=== PATIENT | female | born 1930 | race Hispanic/Latino ===

== ENCOUNTER → 2020-05-13 | Day surgery (SDC) | payer MEDICARE, OTHER ==
[2020-05-08 15:24] LABS: BASOPHILS # (AUTO) 0.1 (0.0-0.1); BASOPHILS % 0.7 % (0.0-1.0); EOSINOPHILS # (AUTO) 0.5 (0.0-0.4); EOSINOPHILS % 7.2 % (0.0-6.0); HEMATOCRIT 34.8 % (34.2-44.1); HEMOGLOBIN 11.3 g/dL (12.0-16.0); LYMPHOCYTES # (AUTO) 3.3 (1.0-3.2); LYMPHOCYTES % 43.8 % (18.0-39.1); MEAN CORPUSCULAR HEMOGLOBIN 30.4 pg (28-32); MEAN CORPUSCULAR HGB CONC 32.5 g/dL (31-35); MEAN CORPUSCULAR VOLUME 93.5 fL (81-99); MONOCYTES # (AUTO) 0.8 (0.2-0.8); NEUTROPHILS # (AUTO) 2.8 (2.1-6.9); NEUTROPHILS % 36.9 % (38.7-80.0); PLATELET COUNT 245 x10e3/uL (140-360); RED BLOOD COUNT 3.72 x10e6/uL (3.6-5.1)
[~2020-05-13] MED LIST: EFFEXOR XR 3737.5 MG PO; FAMOTIDINE20 MG PO; LOSARTAN POTAS100 MG PO; MECLIZINE HCL12.5 MG PO; PANTOPRAZOLE SO40 MG PO; PLAVIX75 MG PO; PRAVACHOL40 MG PO; PROPOFOL IV EMULSION 10 MG/ML 20 ML VIAL ONE; TUSSIN AC PO; XANAX1 MG PO; ZETIA10 MG PO
[2020-05-13 12:15] VITALS: BP 164/69
== END | disposition home or self-care (01) ==
LOC: OR 09:58
PROVIDERS: ATTEND Internal Medicine Gastroenterology
DX: K25.3 Acute gastric ulcer without hemorrhage or perforation (principal); R13.19 Other dysphagia; K44.9 Diaphragmatic hernia without obstruction or gangrene; K59.00 Constipation, unspecified; R63.4 Abnormal weight loss; I10 Essential (primary) hypertension; I69.398 Other sequelae of cerebral infarction; J44.9 Chronic obstructive pulmonary disease, unspecified; I25.10 Atherosclerotic heart disease of native coronary artery without angina pectoris; I25.2 Old myocardial infarction; F17.210 Nicotine dependence, cigarettes, uncomplicated; Z88.6 Allergy status to analgesic agent; Z91.040 Latex allergy status; Z91.048 Other nonmedicinal substance allergy status; Z01.810 Encounter for preprocedural cardiovascular examination; Z01.812 Encounter for preprocedural laboratory examination; Z20.828 Contact with and (suspected) exposure to other viral communicable diseases; Z79.02 Long term (current) use of antithrombotics/antiplatelets; Z98.61 Coronary angioplasty status
CPT/HCPCS: 36415; 43239; 85025; 88305; 93005; J2704; U0002; 88304

== ENCOUNTER → 2021-04-23 | Outpatient (CLI) | payer MEDICARE ==
[~2021-04-23] MED LIST changes: -PROPOFOL IV EMULSION 10 MG/ML 20 ML VIAL ONE
== END ==
LOC: RAD 12:00
PROVIDERS: ATTEND Nurse Practitioner Adult Health
DX: R13.10 Dysphagia, unspecified (principal); J18.9 Pneumonia, unspecified organism; I51.7 Cardiomegaly
CPT/HCPCS: 71046

== ENCOUNTER → 2021-05-03 | Outpatient (CLI) | payer MEDICARE | LOC: CT 16:05 | PROVIDERS: ATTEND Family Medicine | DX: R91.1 Solitary pulmonary nodule (principal) | CPT/HCPCS: 71250 ==

== ENCOUNTER 2021-05-07 15:18 | Inpatient (IN) | payer MEDICARE ==
[~2021-05-07] VITALS: Ht 152.4 cm; Wt 40.8 kg
[2021-05-07 16:04] LABS: INR 0.87; PROTHROMBIN TIME 12.5 seconds (11.9-14.5)
[2021-05-07 16:05] LABS: PARTIAL THROMBOPLASTIN TIME 27.4 seconds (23.8-35.5)
[2021-05-07 16:12] LABS: BASOPHILS % 0.4 % (0.0-1.0); EOSINOPHILS # (AUTO) 0.1 (0.0-0.4); EOSINOPHILS % 0.6 % (0.0-6.0); HEMOGLOBIN 12.1 g/dL (12.0-16.0); LYMPHOCYTES # (AUTO) 1.6 (1.0-3.2); LYMPHOCYTES % 18.9 % (18.0-39.1); MEAN CORPUSCULAR HEMOGLOBIN 30.3 pg (28-32); MEAN CORPUSCULAR HGB CONC 32.7 g/dL (31-35); MEAN CORPUSCULAR VOLUME 92.5 fL (81-99); MONOCYTES # (AUTO) 0.8 (0.2-0.8); MONOCYTES % 9.5 % (4.4-11.3); NEUTROPHILS % 70.1 % (38.7-80.0); PLATELET COUNT 348 x10e3/uL (140-360); RED CELL DISTRIBUTION WIDTH 16.8 % (11.7-14.4)
[2021-05-07 16:17] LABS: CREATINE KINASE MB 1.7 ng/mL (0-5.0)
[2021-05-07 16:28] LABS: ALBUMIN 3.2 g/dL (3.5-5.0); ALBUMIN/GLOBULIN RATIO 0.8 (0.8-2.0); ANION GAP 12.6 mmol/L (8-16); CALCIUM 9.2 mg/dL (8.4-10.2); CREATININE, SERUM 1.16 mg/dL (0.57-1.11); POTASSIUM 3.6 mmol/L (3.5-5.1)
[2021-05-07] MEDS ORDERED: SODIUM CHLORIDE 0.9% 1000ML 1,000 ML IV SCH (16:45)
[2021-05-07] MEDS ORDERED: IOPAMIDOL 370 MG/ML 200 ML INFUS..BTL INJ ONE (17:11)
[2021-05-07] MEDS ORDERED: SODIUM CHLORIDE 0.9% 100 ML ONE (17:12)
[2021-05-07 18:39] VITALS: BP 173/63
[2021-05-07 18:41] VITALS: BP 173/63
[2021-05-07 20:00] VITALS: BP 173/63
[2021-05-07 20:39] VITALS: BP 177/67
[2021-05-07 21:00] VITALS: BP 177/67
[2021-05-07] MEDS ORDERED: HYDRALAZINE HCL 20 MG/ML VIAL IV PRN (22:45)
[2021-05-07] MEDS ORDERED: MECLIZINE HCL 12.5 MG TAB PO PRN (22:45)
[2021-05-07] MEDS ORDERED: ALBUTEROL/IPRATROPIUM 3 ML NEB NEB PRN (22:45)
[2021-05-07] MEDS: CEFTRIAXONE 1 GM in SODIUM CHLORIDE 0.9% 50ML 50 ML IV SCH (23:00)
[2021-05-07] MEDS: LOSARTAN POTASSIUM 100 MG TAB PO SCH (23:00)
[2021-05-07] MEDS: ALPRAZOLAM 0.5 MG TAB PO PRN (23:00)
[2021-05-07] MEDS: VENLAFAXINE HCL 75 MG TAB PO SCH (23:00)
[2021-05-08] VITALS (8 sets, daily range): BP systolic 155–190; BP diastolic 55–73
[2021-05-08] MEDS ORDERED: INFLUENZA VIRUS VAC SPLIT INJ 0.5 ML SYR IM SCH (01:09)
[2021-05-08 05:58] LABS: BASOPHILS % 0.3 % (0.0-1.0); EOSINOPHILS % 0.7 % (0.0-6.0); HEMATOCRIT 31.1 % (34.2-44.1); HEMOGLOBIN 10.3 g/dL (12.0-16.0); LYMPHOCYTES # (AUTO) 1.6 (1.0-3.2); LYMPHOCYTES % 22.2 % (18.0-39.1); MEAN CORPUSCULAR HEMOGLOBIN 29.9 pg (28-32); MEAN CORPUSCULAR HGB CONC 33.1 g/dL (31-35); MEAN CORPUSCULAR VOLUME 90.4 fL (81-99); MONOCYTES % 10.6 % (4.4-11.3); NEUTROPHILS # (AUTO) 4.8 (2.1-6.9); NEUTROPHILS % 65.5 % (38.7-80.0); PLATELET COUNT 278 x10e3/uL (140-360); RED BLOOD COUNT 3.44 x10e6/uL (3.6-5.1); RED CELL DISTRIBUTION WIDTH 16.9 % (11.7-14.4)
[2021-05-08 05:59] LABS: EOSINOPHILS # (AUTO) 0.1 (0.0-0.4); MONOCYTES # (AUTO) 0.8 (0.2-0.8)
[2021-05-08 06:32] LABS: ANION GAP 10.5 mmol/L (8-16); CALCIUM 8.3 mg/dL (8.4-10.2); CREATININE, SERUM 0.88 mg/dL (0.57-1.11); POTASSIUM 3.5 mmol/L (3.5-5.1)
[2021-05-08] MEDS ORDERED: PANTOPRAZOLE SOD 40 MG TABEC PO SCH (09:00)
[2021-05-08] MEDS: FAMOTIDINE 20 MG TAB PO SCH (09:42)
[2021-05-08] MEDS: VENLAFAXINE HCL 75 MG TAB PO SCH ×2 (09:42→18:12)
[2021-05-08] MEDS: EZETIMIBE 10 MG TAB PO SCH (09:42)
[2021-05-08] MEDS: CEFTRIAXONE 1 GM in SODIUM CHLORIDE 0.9% 50ML 50 ML IV SCH (09:43)
[2021-05-08] MEDS: LOSARTAN POTASSIUM 100 MG TAB PO SCH (09:43)
[2021-05-08] MEDS: ALBUTEROL/IPRATROPIUM 3 ML NEB NEB SCH ×4 (11:00→23:30)
[2021-05-08] MEDS ORDERED: BENZOCAINE/TETRACAINE/BUTAMBEN AERO SPRAY 56 GM CAN ONE (15:14)
[2021-05-08] MEDS ORDERED: FLUCONAZOLE 200 MG/100 ML 100 ML IV SCH (16:00)
[2021-05-08] MEDS ORDERED: PROPOFOL IV EMULSION 10 MG/ML 20 ML VIAL ONE (17:53)
[2021-05-08] MEDS ORDERED: POVIDONE IODINE 0.05% 0.05 % ML PO ONE (17:53)
[2021-05-08] MEDS ORDERED: METHYLPREDNISOLONE SOD SUCC 40 MG/ML VIAL 1ML IV STA (20:21)
[2021-05-08] MEDS ORDERED: ACETAMINOPHEN 325 MG TAB PO PRN (20:30)
[2021-05-08] MEDS ORDERED: ACETAMINOPHEN 325 MG TAB ONE (20:40)
[2021-05-08] MEDS: ALPRAZOLAM 0.5 MG TAB PO PRN (20:43)
[2021-05-09] MEDS: ALBUTEROL/IPRATROPIUM 3 ML NEB NEB SCH ×3 (03:20→11:25)
[2021-05-09 04:48] VITALS: BP 160/74
[2021-05-09] MEDS: METHYLPREDNISOLONE SOD SUCC 40 MG/ML VIAL 1ML IV SCH ×2 (05:45→05:49)
[2021-05-09 07:53] VITALS: BP 172/70
[2021-05-09] MEDS: CEFTRIAXONE 1 GM in SODIUM CHLORIDE 0.9% 50ML 50 ML IV SCH (09:29)
[2021-05-09] MEDS: LOSARTAN POTASSIUM 100 MG TAB PO SCH (09:29)
[2021-05-09] MEDS: EZETIMIBE 10 MG TAB PO SCH (09:30)
[2021-05-09] MEDS: FAMOTIDINE 20 MG TAB PO SCH (09:30)
[2021-05-09] MEDS: VENLAFAXINE HCL 75 MG TAB PO SCH (09:30)
[2021-05-09 11:54] VITALS: BP 153/72
== END 2021-05-09 15:53 | disposition left against medical advice (07) | DRG 190 ==
LOC: ER 15:21 → ERHOLD 16:41 → MED/SURG3 18:20
PROVIDERS: ADMIT Internal Medicine; ATTEND Internal Medicine
PROC: 0D758ZZ Dilation of Esophagus, Via Natural or Artificial Opening Endoscopic (ICD-10-PCS; 2021-05-08)
PROC: 0DD58ZX Extraction of Esophagus, Via Natural or Artificial Opening Endoscopic, Diagnostic (ICD-10-PCS; 2021-05-08)
PROC: 0DB78ZX Excision of Stomach, Pylorus, Via Natural or Artificial Opening Endoscopic, Diagnostic (ICD-10-PCS; principal; 2021-05-08 14:58)
DX: J43.9 Emphysema, unspecified (principal); K29.71 Gastritis, unspecified, with bleeding; C34.92 Malignant neoplasm of unspecified part of left bronchus or lung; R91.8 Other nonspecific abnormal finding of lung field; K57.90 Diverticulosis of intestine, part unspecified, without perforation or abscess without bleeding; I10 Essential (primary) hypertension; E78.5 Hyperlipidemia, unspecified; R13.10 Dysphagia, unspecified; F41.0 Panic disorder [episodic paroxysmal anxiety]; Z86.73 Personal history of transient ischemic attack (TIA), and cerebral infarction without residual deficits; I25.10 Atherosclerotic heart disease of native coronary artery without angina pectoris; Z87.891 Personal history of nicotine dependence; R59.0 Localized enlarged lymph nodes
CPT/HCPCS: 36415; 43450; 71045; 71260; 74174; 80048; 80053; 82550; 82553; 84484; 85025; 85610; 85730; 86850; 86900; 88305; 88312; 88342; 93005; 94640; 94799; 99284; J0360; J0696; J1450; J2920; J7030; J7050; Q9967; U0002